=== PATIENT | female | born 1945 | race Caucasian/White ===

== ENCOUNTER 2024-06-12 11:51 | Inpatient (IN) | payer MEDICARE, OTHER ==
[~2024-06-12] VITALS: Ht 152.4 cm; Wt 61.2 kg
[2024-06-12] MEDS: IV NORMAL SALINE 500 ML BAG IV ONE (12:00)
--- NOTE | 2024-06-12 12:12 | NUR ---
PT B[facility]UL[facility], AFTER BEING FOUND WITH ALTERED MENTAL STATUS. REPORT RECIVED FROM PARAMEDICS, MD AND RN ASSESS. PT ALERT BUY DROWSY, ORIENTED ONLY IN PERSON, BREATHING EVEN AND UNLABORED AT ROOM AIR. PER PARAMEDICS, IN THE LIVING HOME STARTED TO ACTING MORE CONFUSIONAL AND SLOW TO RESPOND THAT SHE USED TO. ALSO STATES THAT HGT WAS APPROX 500, AND THAT THE PT ISNT TAKE HER MEDICATION FOR DBT. PT DENIES SOB, CHEST PAIN, NAUSEA, VOMITING, FEVER OR CHILLS AT THIS TIME. 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 VS CHARTED.
[2024-06-12 12:14] LABS: BASOPHILS % (AUTO) 0.1 % (0.0-2.0); HEMATOCRIT 25.3 % (31.2-41.9); HEMOGLOBIN 8.6 g/dL (10.9-14.3); LYMPHOCYTES # (AUTO) 0.5 K/uL (0.8-4.8); LYMPHOCYTES % (AUTO) 5.3 % (20.5-51.5); MEAN CORPUSCULAR HEMOGLOBIN 33.6 uug (24.7-32.8); MEAN CORPUSCULAR HGB CONC 34 g/dL (32.3-35.6); MEAN CORPUSCULAR VOLUME 99.3 fL (75.5-95.3); MONOCYTES # (AUTO) 0.5 K/uL (0.1-1.30); MONOCYTES % (AUTO) 5.4 % (0.0-11.0); NEUTROPHILS # (AUTO) 7.9 K/uL (1.8-8.9); NEUTROPHILS % (AUTO) 89.2 % (38.5-71.5); PLATELET COUNT (AUTO) 147 K/uL (179-408); RED BLOOD CELL COUNT(AUTO) 2.55 MIL/uL (3.63-4.92); RED CELL DISTRIBUTION WIDTH 13.6 % (12.3-17.7); WHITE BLOOD COUNT (AUTO) 8.9 K/uL (3.8-11.8)
--- NOTE | 2024-06-12 12:15 | NUR ---
AV IN PLACE 20G RIGHT WRIST. SLING PLACED IN LEFT SHOULDER FOR FRACTURE FOR A FALL DAYS AGO. BRUISES NOTED. NO LESION OR BLEEDING.
[2024-06-12] MEDS ORDERED: BUPR-53 PO (12:20)
[2024-06-12] MEDS ORDERED: ACET-73 PO (12:20)
[2024-06-12] MEDS ORDERED: CALC200T42 PO (12:20)
[2024-06-12] MEDS ORDERED: ESCI-9 PO (12:22)
[2024-06-12] MEDS ORDERED: DORZ10DR13 EACHEYE (12:22)
[2024-06-12] MEDS ORDERED: SITA100T PO (12:22)
[2024-06-12 12:23] LABS: CALCIUM 6.8 mg/dL (8.5-10.1); CARBON DIOXIDE 17 mmol/L (21-32); CHLORIDE 109 mmol/L (98-107); CREATININE 0.5 mg/dL (0.6-1.3); GLUCOSE 369 mg/dL (74-106); SODIUM SERUM 141 mmol/L (136-145); UREA NITROGEN, BLOOD 27 mg/dL (7-18)
[2024-06-12 12:25] LABS: AMMONIA 20 umol/L (11-32); DIFFERENTIAL COMMENT 1
[2024-06-12] MEDS ORDERED: LEVO100C4 PO (12:25)
[2024-06-12] MEDS ORDERED: LATA2.5D15 EACHEYE (12:25)
[2024-06-12] MEDS ORDERED: LIDO1ADH71 TOP (12:25)
--- NOTE | 2024-06-12 12:25 | NUR ---
CT + XRAY DONE.
[2024-06-12] MEDS ORDERED: MAGN64TA9 PO (12:26)
[2024-06-12] MEDS ORDERED: METF-440 PO (12:26)
[2024-06-12] MEDS ORDERED: LISI-782 PO (12:26)
[2024-06-12] MEDS ORDERED: PRAV80TA21 PO (12:27)
[2024-06-12] MEDS ORDERED: CYAN-51 PO (12:27)
[2024-06-12] MEDS ORDERED: CHOL200074 PO (12:27)
--- NOTE | 2024-06-12 12:28 | NUR ---
HGT 442MG/DL AWARE.
[2024-06-12] MEDS ORDERED: LOPE2TAB25 PO (12:29)
[2024-06-12] MEDS ORDERED: MORP15TA PO (12:29)
[2024-06-12] MEDS ORDERED: DOCU100C36 PO (12:29)
[2024-06-12 12:31] LABS: ACETAMINOPHEN 15.8 ug/mL (10-30); ALANINE AMINOTRANSFERASE < 6 U/L (14-59); ALKALINE PHOSPHATASE 28 U/L (50-136); ASPARTATE AMINOTRANSFERASE 7 U/L (15-37); BILIRUBIN,DIRECT 0.2 mg/dL (0.0-0.2); BILIRUBIN,TOTAL 0.4 mg/dL (0.2-1.0); TOTAL PROTEIN, SERUM 4.6 g/dL (6.4-8.2)
[2024-06-12 12:32] LABS: ETHANOL < 3 MG/DL (0-10)
[2024-06-12 12:36] LABS: THYROID STIMULATING HORMONE 0.552 mIU/mL (0.358-3.740)
[2024-06-12] MEDS: INSULIN REGULAR, HUMAN 1000 UNIT/10 ML VIAL SQ ONE (13:48)
[2024-06-12] MEDS: POTASSIUM CHLORIDE 50 ML IV SCH (14:58)
[2024-06-12] MEDS: POTASSIUM CHLORIDE 20 MEQ TAB.PRT.SR PO ONE (15:27)
--- NOTE | 2024-06-12 15:30 | NUR ---
PO MEDS ARE HOLD D/T PT IS NOT ABLE TO PERFORM SWALLOW SCREEN AT THIS MOMENT.
--- NOTE | 2024-06-12 15:50 | NUR ---
PT ADMITED IN TELE ROOM 311, REPORT GIVEN TO KASSANDRA BAKER FOR CONTINUITY OF CARE.
--- NOTE | 2024-06-12 16:00 | NUR ---
SECOND BAG OF KCL 10MEQ RUNNING.
[2024-06-12 16:37] VITALS: BP 108/59; TEMP 98; O2SAT 95
[2024-06-12] MEDS ORDERED: LIDO30AD10 TD (17:36)
[2024-06-12] MEDS ORDERED: LEVO100T10 PO (17:36)
--- NOTE | 2024-06-12 18:50 | NUR ---
ADMITTED TO [facility], WITH DIAGNOSIS OF AMS, UNDER DR. JIMENEZ. PATIENT WITH HISTORY OF DM, OSTEOPOROSIS, DEPRESSION, HTN, GLAUCOMA, CAD. WITH IV AT RIGHT WRIST, WITH ARM SLING ON LEFT ARM. PLACED ON PUREWICK. VITAL SIGNS CHECKED AND BODY ASSESSMENT DONE. A/OX1-2, NO RESPIRATORY DISTRESS. DENIES ANY PAIN OR DISCOMFORT. BELONGINGS LIST DONE. ALL NEEDS ATTENDED. ENDORSED TO NEXT SHIFT.
[2024-06-12 20:00] VITALS: BP 157/77; TEMP 98.7; O2SAT 100
--- NOTE | 2024-06-12 23:00 | NUR ---
AT 23:[address] Bolden for admission orders didn't answer and, message gave bottom ironer DR MEHTA Phone. Call DR Mehta and left message to call back.
[2024-06-13] VITALS: BP 160/84; TEMP 99.2; O2SAT 94
--- NOTE | 2024-06-13 00:35 | NUR ---
At 00:30 Am receded phone call from DR Bolden with orders. Will F/U
[2024-06-13] MEDS ORDERED: DEXTROSE 50% 50 ML DISP.SYRIN IV PRN (01:00)
[2024-06-13] MEDS ORDERED: ACETAMINOPHEN 500 MG TABLET PO PRN (01:00)
[2024-06-13] MEDS: hydrALAZINE HCL 20 MG/1 ML VIAL IV PRN (01:03)
[2024-06-13 04:42] VITALS: BP 154/66; TEMP 98.2; O2SAT 95
[2024-06-13 05:02] LABS: *BILIRUBIN,URIN NEGATIVE (NEGATIVE); *BLOOD, URINE 1+ (NEGATIVE); *COLOR,URINE YELLOW (YELLOW); *KETONES,URINE 4+ (NEGATIVE); *PROTEIN,URINE 1+ (NEGATIVE); *UROBILINOGEN,URINE 0.2 E.U./dl (NORMAL); LEUKOCYTE ESTERASE ,URINE 1+ (NEGATIVE); NITRITE, URINE NEGATIVE (NEGATIVE); PH,URINE 5.5 (5.0-8.0)
[2024-06-13 05:05] LABS: *CLARITY,URINE SLIGHTLY HAZY (CLEAR); UGLUCOSE 2+ (NEGATIVE)
[2024-06-13 05:23] LABS: *BENZODIAZEPINE, URINE NEGATIVE (NEGATIVE); *CANNABINOID, URINE NEGATIVE (NEGATIVE); *COCCAINE, URINE NEGATIVE (NEGATIVE); *OPIATE, URINE POSITIVE (NEGATIVE); *PHENCYCLIDINE SCREEN,URINE NEGATIVE (NEGATIVE); FENTANYL, URINE NEGATIVE (NEGATIVE)
[2024-06-13 05:49] LABS: *AMPHETAMINE, URINE NEGATIVE (NEGATIVE); *BARBITURATE, URINE NEGATIVE (NEGATIVE)
[2024-06-13 05:51] LABS: BACTERIA,URINE MANY /HPF (NONE SEEN); SQUAMOUS EPITHELIAL CELL,UR FEW /HPF (NONE SEEN)
[2024-06-13] MEDS: BLOOD SUGAR DIAGNOSTIC 1 EACH STRIP VI SCH (06:53)
--- NOTE | 2024-06-13 06:58 | NUR ---
BS 403 notified
--- NOTE | 2024-06-13 07:00 | NUR ---
RECEIVED PATIENT WITH 403 BS NO SLIDING SCALE GIVEN, ADVISED NIGHT RN TO CALL MD PER POLICY. PATIENT ALERT AND VERBALLY RESPONSIVE, NO SIGNS OF DISTRESS, SKIN WARM AND DRY WILL CONTINUE TELE MONITORING
[2024-06-13] MEDS: INSULIN REGULAR, HUMAN 1000 UNIT/10 ML VIAL SQ PRN (07:31)
[2024-06-13] MEDS ORDERED: INSULIN LISPRO 300 UNIT/3 ML VIAL SQ SCH ×2 (07:45)
[2024-06-13] MEDS ORDERED: INSULIN GLARGINE,HUM 300 UNITS/3 ML CARTRIDGE SQ SCH (07:45)
--- NOTE | 2024-06-13 07:50 | NUR ---
Received call back with an orders lantus 10 u x 1 and lispro 8 u x 1
[2024-06-13 08:00] VITALS: BP 148/78; TEMP 98.3; O2SAT 97
[2024-06-13] MEDS: LISINOPRIL 5 MG TABLET PO SCH (08:35)
--- NOTE | 2024-06-13 08:43 | NUR ---
BS RECHECKED =403, PATIENT ASYMPTOMATIC WILL CONTINUE TO MONITOR
[2024-06-13] MEDS: INSULIN GLARGINE,HUM 300 UNITS/3 ML CARTRIDGE SQ SCH ×2 (08:56→20:41)
--- NOTE | 2024-06-13 09:45 | NUR ---
BS REMAINS HIGH DR JIMENEZ NOTIFIED AND SPOKE WITH PHARMACIST WITH ORDERS.
[2024-06-13] MEDS: INSULIN REGULAR, HUMAN 1000 UNIT/10 ML VIAL SQ ONE (10:29)
--- NOTE | 2024-06-13 10:39 | NUR ---
WOUND CARE CONSULT: PT PRESENTS WITH SACRAL SCARRING WITH DISCOLORATION, PRESENT ON ADMISSION. LEFT ARM SLING NOTED WITH DISCOLORATION TO LEFT ARM, PRESENT ON ADMISSION. DISCUSSED SKIN PROTECTION WITH NURSING STAFF. MD IN AGREEMENT WITH PLAN OF CARE.
[2024-06-13] MEDS: REMEDY ESSENTIAL ZINC PASTE 113 GM TOP PRN (11:22)
[2024-06-13 12:00] VITALS: BP 142/66; TEMP 97.7; O2SAT 97
--- NOTE | 2024-06-13 13:06 | NUR ---
SEEN BY DR MITTAL,FOR ORTHO CONSULT DISCUSSED CLIF OF CARE WITH DAUGHTER SEE NOTES, CONTINUE USE OF SLING FOR COMFORT, CONTINUE PHYSICAL THERAPY ORDERED, PER DR MITTAL NO SURGICAL INTERVENTION NEEDED SEE NOTES
--- NOTE | 2024-06-13 15:09 | NUR ---
DR JIMENEZ IN REVIEWED WITH ORDER FOR NEURO CONSULT
[2024-06-13] MEDS ORDERED: DOCUSATE SODIUM 100 MG CAPSULE PO PRN (15:15)
[2024-06-13] MEDS ORDERED: LISINOPRIL 5 MG TABLET PO SCH (15:15)
[2024-06-13] MEDS ORDERED: CEFTRIAXONE 1 G VIAL IM SCH (15:15)
[2024-06-13] MEDS: ESCITALOPRAM OXALATE 10 MG TABLET PO SCH (16:42)
[2024-06-13] MEDS: ACETAMINOPHEN 500 MG TABLET PO SCH (16:42)
[2024-06-13] MEDS: LIDOCAINE 5% PATCH TD SCH (16:42)
[2024-06-13] MEDS: buPROPion XL 150 MG TAB.SR.24H PO SCH (16:42)
[2024-06-13] MEDS: CYANOCOBALAMIN 1,000 MCG TABLET PO SCH (16:42)
[2024-06-13 16:43] VITALS: BP 139/54; TEMP 98.1; O2SAT 95
[2024-06-13] MEDS: LEVOTHYROXINE SODIUM 100 MCG TABLET PO SCH (16:44)
[2024-06-13] MEDS ORDERED: ACETAMINOPHEN ES 500 MG TABLET- SA PATIENTS-PAIN ONLY PO SCH (17:00)
[2024-06-13] MEDS ORDERED: MAGNESIUM CHLORIDE 64 MG TABLET.SA PO SCH (17:00)
[2024-06-13] MEDS: CEFTRIAXONE 1 G in IV DEXTROSE 5% 50 ML IV SCH (17:22)
[2024-06-13] MEDS: DORZOLAMIDE/TIMOLOL OPHT DROP 10 ML BOTTLE EACHEYE SCH (17:22)
[2024-06-13] MEDS: CALCIUM CITRATE 950MG (=200 MG ELEMENTAL CALCIUM) TAB PO SCH (17:23)
[2024-06-13] MEDS: MAGNESIUM CHLORIDE 64 MG TABLET.SA PO SCH (17:23)
[2024-06-13 20:00] VITALS: BP 132/56; TEMP 97.7; O2SAT 94
[2024-06-13] MEDS: LATANOPROST OPHT DROP 2.5 ML BOTTLE EACHEYE SCH (20:43)
[2024-06-13] MEDS: REMEDY ESSENTIAL ZINC PASTE 113 GM TOP SCH (20:43)
[2024-06-14] VITALS: BP 152/71; TEMP 98.5; O2SAT 97
[2024-06-14 04:00] VITALS: BP 152/79; TEMP 98.6; O2SAT 98
--- NOTE | 2024-06-14 04:05 | NUR ---
Pt Been Tachycardiac notified director of automation DR Sosa with an order EKG STAT.
--- NOTE | 2024-06-14 04:35 | NUR ---
Received new order NS 75ml/hr IV for hydration.
[2024-06-14] MEDS: KETOROLAC TROMETHAMINE 15 MG INJ IVP PRN (04:50)
[2024-06-14] MEDS: IV NS 1000 ML 1,000 ML IV PRN (05:26)
[2024-06-14 05:37] LABS: BASOPHILS % (AUTO) 0.1 % (0.0-2.0); DIFFERENTIAL COMMENT 1; HEMATOCRIT 30.8 % (31.2-41.9); HEMOGLOBIN 10.5 g/dL (10.9-14.3); LYMPHOCYTES # (AUTO) 0.5 K/uL (0.8-4.8); LYMPHOCYTES % (AUTO) 3.3 % (20.5-51.5); MEAN CORPUSCULAR HEMOGLOBIN 33.1 uug (24.7-32.8); MEAN CORPUSCULAR HGB CONC 34 g/dL (32.3-35.6); MEAN CORPUSCULAR VOLUME 97.5 fL (75.5-95.3); MONOCYTES # (AUTO) 0.7 K/uL (0.1-1.30); NEUTROPHILS # (AUTO) 12.6 K/uL (1.8-8.9); NEUTROPHILS % (AUTO) 91.6 % (38.5-71.5); PLATELET COUNT (AUTO) 210 K/uL (179-408); RED BLOOD CELL COUNT(AUTO) 3.16 MIL/uL (3.63-4.92); WHITE BLOOD COUNT (AUTO) 13.7 K/uL (3.8-11.8)
[2024-06-14 05:46] LABS: CALCIUM 8.7 mg/dL (8.5-10.1); CARBON DIOXIDE 22 mmol/L (21-32); CHLORIDE 103 mmol/L (98-107); CREATININE 0.7 mg/dL (0.6-1.3); GLUCOSE 336 mg/dL (74-106); POTASSIUM 3.7 mmol/L (3.5-5.1); SODIUM SERUM 137 mmol/L (136-145); UREA NITROGEN, BLOOD 38 mg/dL (7-18)
[2024-06-14 05:52] LABS: MAGNESIUM 1.7 mg/dL (1.8-2.4)
--- NOTE | 2024-06-14 06:47 | NUR ---
Done STAT BMP comes MG 1.7, CA 2, BUN 54.3. Called DR Bolden with a message regarding abnormal labs and elevated HR.
--- NOTE | 2024-06-14 07:15 | NUR ---
RECEIVED PHONE CALL FROM DR JIMENEZ WITH AN ORDERS 2D ECHO AND CARDIO CONSULT.
[2024-06-14 08:00] VITALS: BP 167/74; TEMP 99.1; O2SAT 95
--- NOTE | 2024-06-14 08:30 | NUR ---
Patient a+ox2, no acute respiratory distress, seen by Dr. Matson, new order given to start Cardizem 30mg q 6 hr. kept clean and dry, repositioned for comfort.
[2024-06-14] MEDS: DILTIAZEM HCL 30 MG TABLET PO SCH (09:06)
[2024-06-14 12:00] VITALS: BP 115/63; TEMP 97.7; O2SAT 95
[2024-06-14] MEDS: MAGNESIUM OXIDE 400 MG TABLET PO ONE (12:14)
[2024-06-14 16:08] LABS: THYROID STIMULATING HORMONE 1.391 mIU/mL (0.358-3.740)
[2024-06-14 16:34] VITALS: BP 154/87; TEMP 97.3; O2SAT 95
[2024-06-14] MEDS: NEUTRA PHOS PACKET PO ONE (16:49)
--- NOTE | 2024-06-14 18:25 | NUR ---
Awake, verbally responsive, no acute respiratory distress noted, consent for Ct Head with contrast signed by daughter.
[2024-06-14 20:00] VITALS: BP 180/86; TEMP 98.1; O2SAT 95
[2024-06-14] MEDS ORDERED: IOHEXOL 350 100 ML INFUS..BTL ONE (21:00)
[2024-06-14] MEDS ORDERED: SWABABLE VALVE TRANSFER SET EA MC ONE (21:01)
[2024-06-14] MEDS ORDERED: IV NORMAL SALINE 250 ML IV ONE (21:01)
--- NOTE | 2024-06-14 23:10 | NUR ---
RECEIVED PHONE CALL FROM RADIOLOGY FOR ABNORMAL CTA OF HEAD. CALLED DR JIMENEZ AND LEFT MESSAGE.
--- NOTE | 2024-06-14 23:10 | NUR ---
CALLED DR MELVIN REGARDING ABNORMAL CTA OF HEAD HE SAID CALL DR SANCHEZ.
[2024-06-15] VITALS: BP 120/58; TEMP 98.2; O2SAT 95
--- NOTE | 2024-06-15 00:05 | NUR ---
PT SEEN BY ID WITH AN ORDER DO BLADDER SCAN Q 8 HRS. AT 0005 DONE BLADDER SCAN AND GOT 1514 ML, STARTED GALLAGHER AND GOT 1500 ML OUTPUT.
--- NOTE | 2024-06-15 00:42 | NUR ---
CALLED DR DANIEL DAVILA AND LEFT MESSAGE REGARDING ABNORMAL CTA RESULTS.
--- NOTE | 2024-06-15 01:09 | NUR ---
CALLED ER DR FIERRO HE ASSESSED THE PT, HE SAID FOR PETECHIAL BLEEDING SHELL'S NOT NEEDED TO CONTACT WITH NEUROSURGEON AND RECOMMEND TO MONITOR PT FOR BEHAVIORAL MENTAL CHANGES, IF ANY CHANGES CALL HIM AGAIN. PT IS ALERT ORIENTED X 3, VERBALLY RESPONSIVE, VITAL SIGNS WITHIN NORMAL LEVEL BP 125/58 H 104 R 18 T 98.2 O2 SAT 95.
[2024-06-15 04:00] VITALS: BP 134/55; TEMP 97.9; O2SAT 96
--- NOTE | 2024-06-15 06:17 | NUR ---
TEXT DR. BARTLETT FOR MRI APPROVAL.
--- NOTE | 2024-06-15 06:31 | NUR ---
AT 06:[address] JIMENEZ REGARDING ABNORMAL HEAD CTA, SHE WILL FOLLOW UP IN THE MORNING.
[2024-06-15 07:34] LABS: CALCIUM 8.1 mg/dL (8.5-10.1); CARBON DIOXIDE 24 mmol/L (21-32); CHLORIDE 105 mmol/L (98-107); CREATININE 0.5 mg/dL (0.6-1.3); GLUCOSE 222 mg/dL (74-106); MAGNESIUM 1.8 mg/dL (1.8-2.4); POTASSIUM 3.3 mmol/L (3.5-5.1); SODIUM SERUM 137 mmol/L (136-145); UREA NITROGEN, BLOOD 38 mg/dL (7-18)
[2024-06-15 08:00] VITALS: BP 127/57; TEMP 97.5; O2SAT 97
--- NOTE | 2024-06-15 10:25 | NUR ---
Patient transported to [facility] for MRI of brain, left via ambulance transportation [place]. Accompanied by daughter Ivania. Patient c/o back pain, was given routine tylenol with prn Toradol 15mg IV. Left in fair condition, vitals within normal limits.
--- NOTE | 2024-06-15 11:14 | NUR ---
Pt's daughter called from [facility], and was wondering if pt has more than one patch on her skin b/c she was told any patches on her skin under MRI will hurt pt's skin. Charge nurse reviewed pt's MAR and made sure there was just one patch that already removed by pt's daughter.
[2024-06-15 12:00] VITALS: BP 132/68; TEMP 98; O2SAT 98
--- NOTE | 2024-06-15 12:46 | NUR ---
Pt is back from MRI with CVA positive. Charge nurse informed doctor via text message.
[2024-06-15] MEDS: POTASSIUM CHLORIDE 20 MEQ TAB.PRT.SR PO ONE (13:34)
--- NOTE | 2024-06-15 13:52 | NUR ---
Neurology N.P. visited pt and asked for Vascular Surgeon and asked to adjust BP medication to keep BP below 170. Primary doctor notified.
[2024-06-15 16:00] VITALS: BP 126/68; TEMP 97.4; O2SAT 98
[2024-06-15] MEDS: CEFTRIAXONE 1 G in IV DEXTROSE 5% 50 ML IV SCH (16:38)
--- NOTE | 2024-06-15 18:43 | NUR ---
Patient returned from MRI at 12:00pm, tolerated transport and procedure well from [facility]. Patient daughter at bedside who came along for MRI. Received call from CANDY, s/w Héctor who stated that MRI was + for CVA. left message to Dr Bolden regarding result, seen and eval by vascular surgeon Garret Kelly - recommending supportive care at this time. [employer]ICAL [employer]ANT EMPLOYEE Antoni Atkins left message to Dr Bolden regarding putting patient on permissive hypertension, by keeping systolic below 170. Patient's daughter updated with plan. Patient with episodes of being forgetful and confused, removing cardiac leads and mentions of objects that are not inside the room. Able to eat well, no difficulty in swallowing food, no facial droop, no episodes of tachycardia or low blood pressure. Unable to have physical therapy today. Reviewed patients chart. Endorsed to following shift.
--- NOTE | 2024-06-15 19:20 | NUR ---
RECEIVED PATIENT ON BED, AAOX2-3 WITH EPISODE OF CONFUSION. ON ROOM AIR, WITH O2 SATURATION OF 96%. NO COMPLAIN OF SOB AND CHEST PAIN NOTED. WITH IV ON ON RIGHT FORE ARM G20, WITH IVF OF NS AT 75ML/HR. WITH FC CONNECTED TO URINE BAG, DRAINING YELLOWISH URINE OUTPUT. NO WEAKNESS AND SLURRING OF SPEECH NOTED.
[2024-06-15 20:28] VITALS: BP 133/61; TEMP 98.3; O2SAT 97
[2024-06-16] VITALS: BP 154/90; TEMP 98.5; O2SAT 96
[2024-06-16 04:00] VITALS: BP 158/79; TEMP 98.5; O2SAT 95
--- NOTE | 2024-06-16 05:43 | NUR ---
PATIENT BARELY SLEEPS. NO COMPLAIN OF SOB AND CHEST PAIN. ALL NEEDS ATTENDED.
[2024-06-16 06:37] LABS: CALCIUM 7.9 mg/dL (8.5-10.1); CARBON DIOXIDE 24 mmol/L (21-32); CHLORIDE 104 mmol/L (98-107); CREATININE 0.4 mg/dL (0.6-1.3); GLUCOSE 220 mg/dL (74-106); POTASSIUM 3.2 mmol/L (3.5-5.1); SODIUM SERUM 137 mmol/L (136-145); UREA NITROGEN, BLOOD 25 mg/dL (7-18)
[2024-06-16 07:47] VITALS: BP 118/71; TEMP 97.8; O2SAT 97
[2024-06-16] MEDS ORDERED: POTASSIUM CHLORIDE 20 MEQ TAB.PRT.SR PO ONE (09:45)
[2024-06-16] MEDS: POTASSIUM CHLORIDE 20 MEQ TAB.PRT.SR PO ONE (11:54)
[2024-06-16 12:00] VITALS: BP 136/78; TEMP 97.6; O2SAT 97
[2024-06-16 16:08] VITALS: BP 126/71; TEMP 97.8; O2SAT 97
--- NOTE | 2024-06-16 19:15 | NUR ---
RECEIVED PATIENT ON BED, AAOX2 WITH EPISODE OF CONFUSION. ON ROOM AIR, WITH O2 SATURATION OF 96%. NO COMPLAIN OF SOB AND CHEST PAIN NOTED. BP 162/66 AT THIS TIME. WITH IV ON ON RIGHT FORE ARM G20, WITH IVF OF NS AT 75ML/HR. WITH FC CONNECTED TO URINE BAG, DRAINING YELLOWISH URINE OUTPUT. NO WEAKNESS AND SLURRING OF SPEECH NOTED. NO COMPLAIN OF PAIN LEFT ARM. SLING ON LEFT ARM MAINTAIN.
[2024-06-16 20:22] VITALS: BP 162/77; TEMP 98.8; O2SAT 97
[2024-06-17] VITALS (7 sets, daily range): BP systolic 116–174; BP diastolic 46–91; TEMP 97.5–98.5; O2SAT 95–98
--- NOTE | 2024-06-17 05:57 | NUR ---
SEEN PATIENT COMFORTABLY SLEEPING ON BED. ORAL CARE, SKIN CARE AND PERINEAL CARE DONE, WOUND ON THE THE ABDOMINAL FOLDS NOTED. KEPT IT DRY, Z GURD APPLIED AND ORDER FOR WOUND CONSULT PLACED. ALL NEEDS ATTENDED.
[2024-06-17 07:07] LABS: BASOPHILS % (AUTO) 0.3 % (0.0-2.0); EOSINOPHILS # (AUTO) 0.3 K/uL (0.0-0.7); EOSINOPHILS % (AUTO) 3.3 % (0.0-7.0); HEMOGLOBIN 10.2 g/dL (10.9-14.3); LYMPHOCYTES # (AUTO) 0.9 K/uL (0.8-4.8); LYMPHOCYTES % (AUTO) 8.8 % (20.5-51.5); MEAN CORPUSCULAR HEMOGLOBIN 34.4 uug (24.7-32.8); MEAN CORPUSCULAR HGB CONC 35 g/dL (32.3-35.6); MONOCYTES # (AUTO) 0.8 K/uL (0.1-1.30); MONOCYTES % (AUTO) 7.3 % (0.0-11.0); NEUTROPHILS # (AUTO) 8.5 K/uL (1.8-8.9); NEUTROPHILS % (AUTO) 80.3 % (38.5-71.5); PLATELET COUNT (AUTO) 226 K/uL (179-408); RED BLOOD CELL COUNT(AUTO) 2.96 MIL/uL (3.63-4.92); RED CELL DISTRIBUTION WIDTH 13.9 % (12.3-17.7); WHITE BLOOD COUNT (AUTO) 10.6 K/uL (3.8-11.8)
[2024-06-17 07:20] LABS: CALCIUM 7.6 mg/dL (8.5-10.1); CARBON DIOXIDE 24 mmol/L (21-32); CHLORIDE 104 mmol/L (98-107); CREATININE 0.4 mg/dL (0.6-1.3); GLUCOSE 129 mg/dL (74-106); SODIUM SERUM 135 mmol/L (136-145); UREA NITROGEN, BLOOD 19 mg/dL (7-18)
[2024-06-17 07:22] LABS: POTASSIUM 3.6 mmol/L (3.5-5.1)
[2024-06-17 07:23] LABS: DIFFERENTIAL COMMENT 1
--- NOTE | 2024-06-17 08:00 | NUR ---
Sling intact on left arm. Pt able to feel sensation on left hand. Noted Swelling on left arm. Elevated left arm with pillow. Bed alarm on. Pt alert and oriented x [address]. Pt denies any c/o pain. Call light is within reach. Repositioned pt for comfort. Call light is within reach.
--- NOTE | 2024-06-17 18:30 | NUR ---
Pt has poor appetite today. Applied z guard on abd fold. Mepilex foam dressing on sacral remains intact. Turn q 2 hrs implemented. Pt denies any complaint of pain. Call light is within reach.
--- NOTE | 2024-06-17 19:18 | NUR ---
PT RECEIVED IN BED. ALERT, ORIENTED X2-3.IV ON R UPPER MIDLINE NS 75CC/HR IS RUNNING.ROOM AIR. PT IS COOPERATIVE AND INTERACTING. CALL LIGHT IN REACH. SAFETY WILL MONITORED.
[2024-06-18 04:00] VITALS: BP 149/56; TEMP 98.1; O2SAT 92
[2024-06-18 07:48] VITALS: BP 156/73; TEMP 98; O2SAT 96
--- NOTE | 2024-06-18 08:00 | NUR ---
Pt awake alert and oriented x 2 needed [address] again with [address]. Pt forgetful at times but engages on conversation. IVF infusing as ordered. Left arm fx on sling and elevated with pillow. Repositioned patient for comfort.
[2024-06-18 11:40] VITALS: BP 131/75; TEMP 97.8; O2SAT 96
[2024-06-18 16:18] VITALS: BP 145/76; TEMP 98.8; O2SAT 95
--- NOTE | 2024-06-18 18:49 | NUR ---
Pt able to tolerate physical therapy session earlier. Daughter Ivania spoke with cm re: concern on placement. PT is in no acute distress. Call light is within reach.
[2024-06-18 20:07] VITALS: BP 142/70; TEMP 98.1; O2SAT 97
[2024-06-19 00:06] VITALS: BP 146/62; TEMP 98.2; O2SAT 96
[2024-06-19 04:10] VITALS: BP 154/68; TEMP 98.1; O2SAT 96
--- NOTE | 2024-06-19 07:17 | NUR ---
gave report to francisco homer
[2024-06-19 07:37] VITALS: BP 126/100; TEMP 97.8; O2SAT 96
--- NOTE | 2024-06-19 08:00 | NUR ---
Left arm swelling noted and elevated. ICE applied. Pt alert x 2. Pt denies any c/o pain. Repositioned pt for comfort. Call light is within reach.
[2024-06-19 11:31] VITALS: BP 168/68; TEMP 97.9; O2SAT 98
[2024-06-19] MEDS ORDERED: DILT30TA35 PO (13:10)
[2024-06-19] MEDS ORDERED: CLOP75TA15 PO (13:14)
[2024-06-19 15:49] VITALS: BP 136/64; TEMP 97.6; O2SAT 97
[2024-06-19 16:50] VITALS: BP 158/72
--- NOTE | 2024-06-19 16:50 | NUR ---
Report Given to HORTENSIA BISHOP to [facility]. VSS upon discharge. (permissive HTN) SBP 157/70- hr 75. Pt is in no acute distress. Updated pix taken of abd fold, sacral, and Left arm fx/swelling. Discharge instruction given to daughter as well - verbalized understanding.
== END 2024-06-19 16:50 | DRG 64 ==
LOC: ER 11:51 → TELE3 15:35
PROVIDERS: ADMIT Hospitalist; ATTEND Hospitalist
DX: I63.531 Cerebral infarction due to unspecified occlusion or stenosis of right posterior cerebral artery (principal); G93.41 Metabolic encephalopathy; I61.1 Nontraumatic intracerebral hemorrhage in hemisphere, cortical; S42.202A Unspecified fracture of upper end of left humerus, initial encounter for closed fracture; I47.19 Other supraventricular tachycardia; N39.0 Urinary tract infection, site not specified; F03.93 Unspecified dementia, unspecified severity, with mood disturbance; R29.709 NIHSS score 9; W19.XXXA Unspecified fall, initial encounter; Y92.099 Unspecified place in other non-institutional residence as the place of occurrence of the external cause; R62.7 Adult failure to thrive; Z68.26 Body mass index [BMI] 26.0-26.9, adult; I25.10 Atherosclerotic heart disease of native coronary artery without angina pectoris; E11.65 Type 2 diabetes mellitus with hyperglycemia; E86.0 Dehydration; I10 Essential (primary) hypertension; H40.9 Unspecified glaucoma; E03.9 Hypothyroidism, unspecified; Z79.890 Hormone replacement therapy; Z79.4 Long term (current) use of insulin; E78.5 Hyperlipidemia, unspecified; M81.0 Age-related osteoporosis without current pathological fracture; Z79.84 Long term (current) use of oral hypoglycemic drugs
CPT/HCPCS: 36415; 70450; 70496; 70551; 71045; 73060; 73090; 83605; 83735; 83921; 84100; 84443; 84484; 85025; 85730; 87040; 93005; 93307; A4606; A4663; A6209; A6213; A9150; G0378; G0480; J0360; J0696; J1815; J1885; J3480; J7040; Q9967